=== PATIENT | male | born 1945 | race Caucasian/White ===

== ENCOUNTER 2017-05-05 13:00 | Emergency (ER) | payer OTHER, BC ==
[~2017-05-05] VITALS: Ht 167.6 cm; Wt 99.8 kg
[~2017-05-05 13:00] MED LIST: NORCO 5-325 TA1 EACH PO; PREDNISONE 20 M20 MG PO
== END 2017-05-05 16:20 | disposition home or self-care (01) ==
LOC: ER 13:00
DX: S01.01XA Laceration without foreign body of scalp, initial encounter (principal); S06.0X9A Concussion with loss of consciousness of unspecified duration, initial encounter; M54.2 Cervicalgia; W10.8XXA Fall (on) (from) other stairs and steps, initial encounter; Y93.89 Activity, other specified; Y92.89 Other specified places as the place of occurrence of the external cause; Y99.8 Other external cause status; Z88.2 Allergy status to sulfonamides; Z88.5 Allergy status to narcotic agent

== ENCOUNTER 2020-05-02 19:11 | Emergency (ER) | payer OTHER, BC ==
[~2020-05-02] VITALS: Ht 170.2 cm; Wt 90.7 kg
[2020-05-02 19:15] VITALS: BP 176/90
[2020-05-02 21:24] LABS: ANION GAP 10 mmol/L (7-16); BUN 20 mg/dL (7-18); CHLORIDE 104 mmol/L (98-107); CO2 27 mmol/L (21-32); CREATININE 1.4 mg/dL (0.7-1.3); GLUCOSE 91 mg/dL (74-106); POTASSIUM 3.8 mmol/L (3.5-5.1); SODIUM 141 mmol/L (136-145)
[2020-05-02 21:32] LABS: TROPONIN-I <0.06 ng/mL (<0.06)
--- NOTE | 2020-05-03 07:31 | EKG ---
[place] [address] [email or web address] [address] ELECTROCARDIOGRAM REPORT Name: SEEMA JOHANSEN [id number] Admission: 05/02/20 Attend Phys: Discharge: 05/02/20 Date of : 47 Report #: [id number] [facility] ED Test Date: 2020-05-02 Test Time: 20:54:09 Pat Name: SEEMA JOHANSEN Department: Room: Gender: M Technical Maintenance Technician: MPAAMIRA : 1945 Requested By: Rober Lyons Order Number: [id number] MD: Zak Panchal Measurements Intervals [place] Rate: 55 P: 47 VA: 175 QRS: 5 QRSD: 105 T: 11 QT: 428 QTc: 410 Interpretive Statements Sinus rhythm Baseline wander in lead(s) V1 No previous ECG available for comparison Electronically Signed On 05-03-2020 7:31:40 [employer] by Zak Panchal [email or web address] <ELECTRONICALLY SIGNED> By: Zak Panchal MD, [facility] 05/03/20 0731 53 53 Zak Panchal MD, FACC /EPI
== END 2020-05-02 22:05 | disposition home or self-care (01) ==
LOC: ER 19:11
PROVIDERS: Nurse Practitioner
DX: I10 Essential (primary) hypertension (principal); Z79.899 Other long term (current) drug therapy; Z88.2 Allergy status to sulfonamides; Z88.5 Allergy status to narcotic agent

== ENCOUNTER 2021-01-03 12:55 | Emergency (ER) | payer OTHER, BC ==
[~2021-01-03] VITALS: Ht 170.2 cm; Wt 86.2 kg
--- NOTE | ~2021-01-03 | EMS ---
[address] [address] EMS Patient Care Report Name: SEEMA JOHANSEN Room #: REG JIMMIE Garza#: [id number] Admission: 01/03/21 Attend Phys: Discharge: Date of : 47 Report #: [id number] THIS REPORT FOR: //name// Report Transmitted: 01/03/2021 13:39 EMS Care Summary [facility] MED-ACT Incident [id number] @ 01/03/2021 12:11 Incident Location [address] [place] [address] Patient SEEMA JOHANSEN Male, 75 Years 1945 Patient Address [address] [place] [address] Patient History Hypertension (HTN), Patient Allergies Sulfa,Bactrim, Patient Medications Amlodipine, Acetaminophen, Chief Complaint right knee pain Disposition Transported No Lights/Hazel Dispatch Reason Traumatic Injury Transported To [facility] Narrative At 12:11, [id number] was dispatched by 911 to a private residence at [address] [place] [address] for a C3 traumatic injury. E32 was also dispatched. PT was a 75 yr old male who was walking in his garage when he felt a "pop" behind his right knee. PT stated the pop was followed by an intense pain rated [address] [address] EMS Patient Care Report Name: SEEMA JOHANSEN Room #: REG JIMMIE Garza#: [id number] Admission: 01/03/21 Attend Phys: Discharge: Date of : 47 Report #: [id number], and that he was unable to support any weight on that leg. PT stated the pain seemed to go down the back of his leg and into his ankle. PT reported that he had never had any problems with that knee or ankle before. Exam showed no discoloration or deformities to the affected knee. PT stated he did not fall or hit his head. Slight swelling noted to the medial side of the knee. All PMS distal to the injured area intact. VS as listed. 18ga IV in right forearm. Fentanyl 50mcg. radio report to [facility]. transfer of care to ED room 11. Initial Vitals @12:47P: 88,SC Suspected: false @12:36P: 90,R: 12,BP: 153/83,Pain: 6/10,GCS: 15,SpO2: 97,Revised Trauma: 12, @12:46P: 90,R: 12,BP: 150/81,Pain: 3/10,GCS: 15,Temp: 99.1F,Glucose: 117,SpO2: 97,Revised Trauma: 12, Impression Injury of Lower Leg Procedures @12:25ALS AssessmentResponse: UnchangedSucceeded@12:38Saline Lock 10cc (18 ga) Site: Forearm-RightResponse: UnchangedSucceeded@12:41Fentanyl - 50 Micrograms (mcg) - Intravenous (IV)Response: Improved Timeline 12:09,Call Received 12:09,Psap Call 12:11,Dispatched 12:12,En Route 12:23,On Scene 12:24,At Patient 12:25,ALS Assessment,Response: UnchangedSucceeded, 12:36,BP: 153/83 M,PULSE: 90,RR: 12 R,SPO2: 97 Ox,ETCO2: ,BG: ,PAIN: 6,GCS: 15, 12:38,Saline Lock 10cc 18 ga Site: Forearm-Right,Response: UnchangedSucceeded, 12:41,Fentanyl - 50 Micrograms (mcg) - Intravenous (IV),Response: Improved 12:42,Depart Scene 12:46,BP: 150/81 M,PULSE: 90,RR: 12 R,SPO2: 97 Ox,ETCO2: ,B,PAIN: 3,GCS: 15, 12:47,BP: / M,PULSE: 88,RR: R,SPO2: Ox,ETCO2: ,BG: ,PAIN: ,GCS: , 12:50,At Destination 13:04,Call Closed Disclaimer v1.1 Copyright 2020 [employer] This EMS Care Summary contains data elements from the applicable legal record (which may be displayed differently). It is designed to provide pertinent [address] [address] EMS Patient Care Report Name: SEEMA JOHANSEN Room #: REG JIMMIE Garza#: [id number] Admission: 01/03/21 Attend Phys: Discharge: Date of : 47 Report #: [id number] information for the following purposes: continuity of care, clinical quality, and state data reporting. The complete legal record is available to ED staff and administrators of the receiving hospital in [facility]'s Patient Tracker. All data is provided "as is."
[2021-01-03 15:09] VITALS: BP 153/82
== END 2021-01-03 15:09 | disposition home or self-care (01) ==
LOC: ER 12:55
DX: M25.461 Effusion, right knee (principal); M25.571 Pain in right ankle and joints of right foot; M79.671 Pain in right foot; G62.9 Polyneuropathy, unspecified; Z98.890 Other specified postprocedural states; Z79.899 Other long term (current) drug therapy; Z79.891 Long term (current) use of opiate analgesic; Z88.2 Allergy status to sulfonamides; Z88.5 Allergy status to narcotic agent; Z88.6 Allergy status to analgesic agent